=== PATIENT | male | born 1940 | race Caucasian/White ===

== ENCOUNTER 2017-01-18 21:21 | Emergency (ER) | payer MEDICARE, OTHER ==
[~2017-01-18] VITALS: Ht 170.2 cm; Wt 86.0 kg
[~2017-01-18 21:21] MED LIST: ASPI81TA82 PO; CARV3.12 PO; CLOP75 PO; LISI30TA44 PO; NITR.4 SL; ROBA750T PO; SPIR25TA PO
[2017-01-18 21:24] VITALS: BP 170/76; PULSE 83; RESP 16; TEMP 98.7; O2SAT 96
--- NOTE | 2017-01-18 21:39 | PD ---
Physical Exam Time Seen by Provider: 21:36 Narrative 76yo M c/o R low lateral back pain for the past couple hours. Denies injury. Thinks its his kidneys. Denies hx of kidney stones. denies urinary symptoms, hematuria. denies fever, vomiting. reports cold sweats. Reports his organs are reversed. Patient stable. Patient seen in triage. Awaiting bed placement. Data Data Last Documented VS Vital Signs Date Time Temp Pulse Resp B/P Pulse Ox O2 Delivery O2 Flow Rate FiO2 01/18/17 21:24 98.7 83 16 170/76 96 Room Air [facility] Supervised Visit with REHAN: Jody Rodriguez Jan 18, 2017 21:39
[2017-01-18] MEDS: SODIUM CHLOR 0.9% 1000 ML INJ 1,000 ML IV SCH ×2 (22:04→22:21)
[2017-01-18] MEDS ORDERED: SODIUM CHLORIDE 0.9% FLUSH 10 ML FLUSH IV FLUSH PRN (22:15)
[2017-01-18] MEDS ORDERED: ONDANSETRON HCL 4 MG/2 ML VIAL IVP ONE (22:15)
[2017-01-18] MEDS ORDERED: MORPHINE SULFATE 4 MG/ML INJ IV PUSH ONE ×2 (22:30→22:45)
[2017-01-18 22:38] LABS: AUTOMATED NEUTROPHIL # 5.8 TH/MM3 (1.8-7.7); BASOPHIL % 0.5 % (0.0-2.0); EOSINOPHIL # 0.2 TH/MM3 (0-0.4); EOSINOPHIL % 2.6 % (0.0-4.0); HEMATOCRIT 36.5 % (39.0-51.0); HEMO FLAGS DIFF FINAL; LYMPHOCYTE # 1.2 TH/MM3 (1.0-4.8); MEAN CORPUSCULAR HEMOGLOBIN 32.1 PG (27.0-34.0); MEAN CORPUSCULAR HGB CONC 34.6 % (32.0-36.0); MONO % 9.4 % (0.0-8.0); NEUT % 72.5 % (16.0-70.0); PLATELET COUNT 223 TH/MM3 (150-450); RED BLOOD COUNT 3.92 MIL/MM3 (4.50-5.90); RED CELL DISTRIBUTION WIDTH 13.2 % (11.6-17.2)
--- NOTE | 2017-01-18 22:39 | PD ---
HPI Chief Complaint: Back/ Neck Pain or Injury Time Seen by Provider: 22:13 Travel History International Travel<30 days: No Contact w/Intl Traveler<30days: No Traveled to known affect area: No History of Present Illness HPI Patient 76-year-old male who presents to emergency room with complaints of right -sided flank pain. Patient reports that the pain began at rest tonight, reports that pain has been persistent and nonradiating in nature. Denies history of kidney stones in the past. Denies hematuria, urinary urgency or frequency. Denies history of kidney stones in the past. Patient denies fevers or chills, no other complaints. Patient reports that the last time this happened, it was medication induced. Patient unsure which medications he took at that time. 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) Tetanus Vaccination: Unknown Influenza Vaccination: No Past Surgical History Other Surgery: Yes Social History Alcohol Use: Yes (2 glasses wine) Tobacco Use: No Substance Use: No Allergies-Medications (Allergen,Severity, Reaction): Coded Allergies: Tekturna (Verified Allergy, Unknown, 01/18/17) Reported Meds & Prescriptions Reported Meds & Active Scripts Active Medrol Dosepak (Methylprednisolone) 4 Mg Dspk 4 Mg PO DIRECTED Per Pharmacist direction Percocet (Oxycodone-Acetaminophen) 5-325 mg Tab 1-2 Tab PO Q4H PRN Reported Spironolactone 25 Mg Tab 25 Mg PO DAILY Nitroglycerin Tab 0.4 Mg Sl (Nitroglycerin) 0.4 Mg Subl 0.4 Mg SL PRN CHEST PAIN Lisinopril 30 mg (Lisinopril) 30 Mg Tab 40 Mg PO Carvedilol 3.125 mg (Carvedilol) 3.125 Mg Tab 3.125 Mg PO BID Review of Systems General / Constitutional: No: Fever Eyes: No: Visual changes HENT: No: Headaches Cardiovascular: No: Chest Pain or Discomfort Respiratory: No: Shortness of Breath Gastrointestinal: Positive: Nausea, Abdominal Pain Genitourinary: Positive: Flank Pain, No: Dysuria Musculoskeletal: No: Pain Skin: No Rash Neurologic: No: Weakness Psychiatric: No: Depression Endocrine: No: Polydipsia Hematologic/Lymphatic: No: Easy Bruising Physical Exam Narrative GENERAL: moderate distress SKIN: Focused skin assessment warm/dry. HEAD: Atraumatic. Normocephalic. EYES: Pupils equal and round. No scleral icterus. No injection or drainage. ENT: No nasal bleeding or discharge. Mucous membranes pink and moist. NECK: Trachea midline. No JVD. CARDIOVASCULAR: Regular rate and rhythm. No murmur appreciated. RESPIRATORY: No accessory muscle use. Clear to auscultation. Breath sounds equal bilaterally. GASTROINTESTINAL: Abdomen soft, non-tender, nondistended. patient with right sided flank pain MUSCULOSKELETAL: No obvious deformities. No clubbing. No cyanosis. No edema. NEUROLOGICAL: Awake and alert. No obvious cranial nerve deficits. Motor grossly within normal limits. Normal speech. PSYCHIATRIC: Appropriate mood and affect; insight and judgment normal. Data Data Last Documented VS Vital Signs Date Time Temp Pulse Resp B/P Pulse Ox O2 Delivery O2 Flow Rate FiO2 01/18/17 22:55 16 01/18/17 21:24 98.7 83 170/76 96 Room Air Orders Complete Blood Count With Diff (01/18/17 22:04) Comprehensive Metabolic Panel (01/18/17 22:04) Prothrombin Time / Inr (Pt) (01/18/17 22:04) Act Partial Throm Time (Ptt) (01/18/17 22:04) Urinalysis - C+S If Indicated (01/18/17 22:04) Iv Access Insert/Monitor (01/18/17 22:04) Ondansetron Inj (Zofran Inj) (01/18/17 22:15) Sodium Chlor 0.9% 1000 Ml Inj (Ns 1000 M (01/18/17 22:04) Sodium Chloride 0.9% Flush (Ns Flush) (01/18/17 22:15) Ct Abd/Pel W/O Iv Contrast (01/18/17 22:17) Morphine Inj (Morphine Inj) (01/18/17 22:30) Morphine Inj (Morphine Inj) (01/18/17 22:45) Ketorolac Inj (Toradol Inj) (01/19/17 00:00) Dexamethasone Inj (Decadron Inj) (01/19/17 01:00) Oxycodone-Acetamin 5-325 Mg (Percocet (01/19/17 01:00) Labs Laboratory Tests Test 01/18/17 22:10 White Blood Count 8.0 TH/MM3 Red Blood Count 3.92 MIL/MM3 Hemoglobin 12.6 GM/DL Hematocrit 36.5 % Mean Corpuscular Volume 93.0 FL Mean Corpuscular Hemoglobin 32.1 PG Mean Corpuscular Hemoglobin 34.6 % Concent Red Cell Distribution Width 13.2 % Platelet Count 223 TH/MM3 Mean Platelet Volume 9.1 FL Neutrophils (%) (Auto) 72.5 % Lymphocytes (%) (Auto) 15.0 % Monocytes (%) (Auto) 9.4 % Eosinophils (%) (Auto) 2.6 % Basophils (%) (Auto) 0.5 % Neutrophils # (Auto) 5.8 TH/MM3 Lymphocytes # (Auto) 1.2 TH/MM3 Monocytes # (Auto) 0.8 TH/MM3 Eosinophils # (Auto) 0.2 TH/MM3 Basophils # (Auto) 0.0 TH/MM3 CBC Comment DIFF FINAL Differential Comment Prothrombin Time 10.0 SEC Prothromb Time International 0.9 RATIO Ratio Activated Partial 26.3 SEC Thromboplast Time Urine Color YELLOW Urine Turbidity CLEAR Urine pH 5.0 Urine Specific [place] 1.023 Urine Protein 30 mg/dL Urine Glucose (UA) 70 mg/dL Urine Ketones NEG mg/dL Urine Occult Blood NEG Urine Nitrite NEG Urine Bilirubin NEG Urine Urobilinogen LESS THAN 2.0 MG/DL Urine Leukocyte Esterase NEG Urine RBC LESS THAN 1 /hpf Urine WBC 1 /hpf Urine Squamous Epithelial <1 /hpf Cells Urine Mucus FEW /lpf Microscopic Urinalysis Comment CULT NOT INDICATED Sodium Level 137 MEQ/L Potassium Level 4.4 MEQ/L Chloride Level 104 MEQ/L Carbon Dioxide Level 24.5 MEQ/L Anion Gap 9 MEQ/L Blood Urea Nitrogen 21 MG/DL Creatinine 1.44 MG/DL Estimat Glomerular Filtration 48 ML/MIN Rate Random Glucose 161 MG/DL Calcium Level 8.9 MG/DL Total Bilirubin 0.3 MG/DL Aspartate Amino Transf 27 U/L (AST/SGOT) Alanine Aminotransferase 36 U/L (ALT/SGPT) Alkaline Phosphatase 72 U/L Total Protein 7.7 GM/DL Albumin 4.1 GM/DL MDM Medical Decision Making Medical Screen Exam Complete: Yes Emergency Medical Condition: Yes Interpretation(s) Vital Signs Date Time Temp Pulse Resp B/P Pulse Ox O2 Delivery O2 Flow Rate FiO2 01/18/17 22:20 2 01/18/17 21:24 98.7 83 16 170/76 96 Room Air Differential Diagnosis Cystitis, pyelonephritis, kidney stone, muscle strain Narrative Course 76-year-old male who presents to emergency room for evaluation of right sided flank pain which began tonight. Patient uncomfortable on exam, patient with right-sided flank pain. Labs as well as CT of the abdomen and pelvis ordered. Plan to hydrate patient and give IV pain medications. Laboratory Tests Test 01/18/17 22:10 White Blood Count 8.0 TH/MM3 (4.0-11.0) Red Blood Count 3.92 MIL/MM3 (4.50-5.90) Hemoglobin 12.6 GM/DL (13.0-17.0) Hematocrit 36.5 % (39.0-51.0) Mean Corpuscular Volume 93.0 FL (80.0-100.0) Mean Corpuscular Hemoglobin 32.1 PG (27.0-34.0) Mean Corpuscular Hemoglobin 34.6 % Concent (32.0-36.0) Red Cell Distribution Width 13.2 % (11.6-17.2) Platelet Count 223 TH/MM3 (150-450) Mean Platelet Volume 9.1 FL (7.0-11.0) Neutrophils (%) (Auto) 72.5 % (16.0-70.0) Lymphocytes (%) (Auto) 15.0 % (9.0-44.0) Monocytes (%) (Auto) 9.4 % (0.0-8.0) Eosinophils (%) (Auto) 2.6 % (0.0-4.0) Basophils (%) (Auto) 0.5 % (0.0-2.0) Neutrophils # (Auto) 5.8 TH/MM3 (1.8-7.7) Lymphocytes # (Auto) 1.2 TH/MM3 (1.0-4.8) Monocytes # (Auto) 0.8 TH/MM3 (0-0.9) Eosinophils # (Auto) 0.2 TH/MM3 (0-0.4) Basophils # (Auto) 0.0 TH/MM3 (0-0.2) CBC Comment DIFF FINAL Differential Comment Prothrombin Time 10.0 SEC (9.8-11.6) Prothromb Time International 0.9 RATIO Ratio Activated Partial 26.3 SEC Thromboplast Time (24.3-30.1) Urine Color YELLOW (YELLW/STRAW) Urine Turbidity CLEAR (CLEAR) Urine pH 5.0 (5.0-8.5) Urine Specific [place] 1.023 (1.002-1.035) Urine Protein 30 mg/dL (NEG-TRACE) Urine Glucose (UA) 70 mg/dL (NEG) Urine Ketones NEG mg/dL (NEG) Urine Occult Blood NEG (NEG) Urine Nitrite NEG (NEG) Urine Bilirubin NEG (NEG) Urine Urobilinogen LESS THAN 2.0 MG/DL (LESS THAN 2.0) Urine Leukocyte Esterase NEG (NEG) Urine RBC LESS THAN 1 /hpf (0-3) Urine WBC 1 /hpf (0-5) Urine Squamous Epithelial <1 /hpf (0-5) Cells Urine Mucus FEW /lpf (OCC) Microscopic Urinalysis Comment CULT NOT INDICATED Sodium Level 137 MEQ/L (136-145) Potassium Level 4.4 MEQ/L (3.5-5.1) Chloride Level 104 MEQ/L (98-107) Carbon Dioxide Level 24.5 MEQ/L (21.0-32.0) Anion Gap 9 MEQ/L (5-15) Blood Urea Nitrogen 21 MG/DL (7-18) Creatinine 1.44 MG/DL (0.60-1.30) Estimat Glomerular Filtration 48 ML/MIN (>89) Rate Random Glucose 161 MG/DL (74-106) Calcium Level 8.9 MG/DL (8.5-10.1) Total Bilirubin 0.3 MG/DL (0.2-1.0) Aspartate Amino Transf 27 U/L (15-37) (AST/SGOT) Alanine Aminotransferase 36 U/L (12-78) (ALT/SGPT) Alkaline Phosphatase 72 U/L (45-117) Total Protein 7.7 GM/DL (6.4-8.2) Albumin 4.1 GM/DL (3.4-5.0) Last Impressions Abdomen/Pelvis CT 01/18/17 0861 Signed Impressions: Service Date/Time: Wednesday, January 18, 2017 22:35 - CONCLUSION: No acute disease. Anthony Sexton MD patient feeling mildly better at this time. i did review all labs and studies with patient in detail. I am unsure why patient is uncomfortable with his flank pain. I did offer to admit him to hospital for pain control - patient does not want to be admitted to the hospital. he will return to ER if symptoms worsen or progress. he will return to ER as needed. Diagnosis Primary Impression: Flank pain Additional Impression: Renal insufficiency Patient Instructions: General Instructions Med/Other Pt SpecificInfo: Prescription(s) given Scripts Methylprednisolone Dosepak (Medrol Dosepak)4 Mg Dspk4 Mg PO DIRECTED #1 DSPK Ref 0 Per Pharmacist direction Prov:Lindsey Gutierrez DO 01/19/17 Oxycodone-Acetaminophen (Percocet)5-325 mg Tab1-2 Tab PO Q4H PRN (PAIN) #20 TAB Ref 0 Prov:Lindsey Gutierrez DO 01/19/17 Disposition: 01 DISCHARGE HOME Condition: Stable Lindsey Gutierrez DO Jan 18, 2017 22:39
[2017-01-18 22:49] LABS: APTT (PATIENT) 26.3 SEC (24.3-30.1); INTERNATIONAL NORMALIZED RATIO 0.9 RATIO
[2017-01-18 22:52] LABS: BLOOD, URINE NEG (NEG); COMMENT (UR) CULT NOT INDICATED; CULTURE IF INDICATED CULT NOT INDICATED; GLUCOSE,URINE 70 mg/dL (NEG); KETONE, URINE NEG (NEG); MUCUS URINE FEW /lpf (OCC); NITRITE,URINE NEG (NEG); SQUAMOUS EPITHELIAL CELL URINE <1 /hpf (0-5); URINE COLOR YELLOW (YELLW/STRAW)
--- NOTE | 2017-01-18 22:54 | RADRPT ---
EXAM DATE/TIME: 01/18/2017 22:35 [facility] COMPARISON: No previous studies available for comparison. INDICATIONS : Right flank pain. ORAL CONTRAST: No oral contrast ingested. RADIATION DOSE: 12.90 CTDIvol (mGy) MEDICAL HISTORY : Hypertension. Carcinoma, prostate. Situs inverses. SURGICAL HISTORY : None. ENCOUNTER: Initial ACUITY: 1 day PAIN SCALE: 10/10 LOCATION: Right flank TECHNIQUE: Volumetric scanning of the abdomen and pelvis was performed. Using automated exposure control and ad justment of the mA and/or kV according to patient size, radiation dose was kept as low as reasonably achievable to obtain optimal diagnostic quality images. FINDINGS: There is coronary artery calcification and gynecomastia. Atherosclerotic calcifications of the aorta and iliac vessels are seen. Brachii therapy seeds are noted at the level of the prostate. Diverticulo sis of the sigmoid colon is identified. No adenopathy is seen. There are no renal or ureteral stones identified. No inflammatory changes are seen. 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 Degenerative changes of the spine are noted. Lung bases are clear remote right inferior pubic ramus fracture. 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 CONCLUSION: No acute disease. Anthony Sexton MD on January 18, 2017 at 22:49 Board Certified Radiologist. This report was verified electronically.
[2017-01-18 22:55] VITALS: RESP 16
[2017-01-18 23:21] LABS: ALKALINE PHOSPHATASE 72 U/L (45-117); ALT (GPT) 36 U/L (12-78); ANION GAP 9 MEQ/L (5-15); AST (GOT) 27 U/L (15-37); BICARBONATE 24.5 MEQ/L (21.0-32.0); BLOOD UREA NITROGEN 21 MG/DL (7-18); CHLORIDE 104 MEQ/L (98-107); GLOMERULAR FILTRATION RATE 48 ML/MIN (>89); POTASSIUM 4.4 MEQ/L (3.5-5.1); SODIUM (NA) 137 MEQ/L (136-145); TOTAL BILIRUBIN ADULT 0.3 MG/DL (0.2-1.0)
[2017-01-19] MEDS ORDERED: KETOROLAC TROMETHAMINE 30 MG/ML (IVP) VIAL IV PUSH ONE
[2017-01-19] MEDS ORDERED: PERC5TAB12 PO (00:53)
[2017-01-19] MEDS ORDERED: MEDR4PAK PO (00:53)
[2017-01-19] MEDS ORDERED: DEXAMETHASONE SOD PHOS 20 MG/5 ML VIAL IV PUSH ONE (01:00)
[2017-01-19] MEDS ORDERED: oxyCODONE/ACETAMINOPHEN 5 MG/325 MG TAB PO ONE (01:00)
== END 2017-01-19 01:31 | disposition home or self-care (01) ==
LOC: NEPD 21:21
DX: R10.9 Unspecified abdominal pain (principal); N28.9 Disorder of kidney and ureter, unspecified; I10 Essential (primary) hypertension; Z79.01 Long term (current) use of anticoagulants; Z85.46 Personal history of malignant neoplasm of prostate; Z86.79 Personal history of other diseases of the circulatory system
CPT/HCPCS: 74176; 80053; 81001; 85025; 85610; 85730; 96361; 96374; 96375; 99284; J1100; J1885; J2270; J2405; J7030